=== PATIENT | female | born 1970 ===

== ENCOUNTER 2016-09-14 11:24 | Emergency (ER) | payer MEDICARE ==
[2016-09-14 11:41] VITALS: BP 143/77; PULSE 86; RESP 16; TEMP 97.9; O2SAT 96
[2016-09-14 11:42] VITALS: BMI 32.8
--- NOTE | 2016-09-14 12:28 | ED PDOC ---
HPI: Abdomen Time Seen by Provider: 09/14/16 12:08 Chief Complaint (Nursing): Abdominal Pain Chief Complaint (Provider): Abdominal pain History Per: Patient Additional Complaint(s): c/o suprapubic pain x 3 days, now pain radiating to back, started having light vaginal bleeding yesterday. Has hx of utrine fibroids. Past Medical History Reviewed: Nursing Documentation, Vital Signs Vital Signs: Last Vital Signs Temp 97.9 F 09/14/16 11:40 Pulse 86 09/14/16 11:40 Resp 16 09/14/16 11:40 BP 143/77 09/14/16 11:40 Pulse Ox 96 09/14/16 12:28 - Medical History PMH: HTN - Surgical History Surgical History: Tonsillectomy - Family History Family History: States: Unknown Family Hx - Living Arrangements Living Arrangements: With Family - Social History Current smoker - smoking cessation education provided: No Alcohol: None Drugs: Denies - Immunization History Hx Tetanus Toxoid Vaccination: No Hx Influenza Vaccination: No Hx Pneumococcal Vaccination: No - Home Medications Home Medications: Ambulatory Orders Medication Instructions Recorded Aluminum Hydroxide/Magnesium 30 ml PO QID #1 tresa 01/20/14 [Maalox Plus 360 ml] Famotidine [Pepcid] 20 mg PO BID #20 tab 01/20/14 Lisinopril 01/20/14 Verapamil 01/20/14 Ibuprofen [Motrin] 600 mg PO Q6 #20 tab 09/14/16 - Allergies Allergies/Adverse Reactions: Allergies Allergy/AdvReac Type Severity Reaction Status Date / Time No Known Allergies Allergy Verified 09/14/16 12:09 Review of Systems ROS Statement: Except As Marked, All Systems Reviewed And Found Negative Gastrointestinal: Positive for: Abdominal Pain Physical Exam - Reviewed Nursing Documentation Reviewed: Yes Vital Signs Reviewed: Yes - Physical Exam Appears: Positive for: Well, Non-toxic, No Acute Distress Head Exam: Positive for: ATRAUMATIC, NORMAL INSPECTION, NORMOCEPHALIC Skin: Positive for: Normal Color, Warm, DRY Eye Exam: Positive for: EOMI, Normal appearance, PERRL ENT: Positive for: Normal ENT Inspection Neck: Positive for: Normal, Painless ROM Cardiovascular/Chest: Positive for: Regular Rate, Rhythm Respiratory: Positive for: CNT, Normal Breath Sounds Gastrointestinal/Abdominal: Positive for: Normal Exam, Bowel Sounds, Soft Back: Positive for: Normal Inspection Extremity: Positive for: Normal ROM Neurologic/Psych: Positive for: Alert, Oriented - Laboratory Results Result Diagrams: 09/14/16 12:35 09/14/16 12:35 - ECG O2 Sat by Pulse Oximetry: 96 Medical Decision Making Medical Decision Making: IV access established and treatment initiated with Toradol Good pain relief obtained on re-eval CBC, COMP and Urine within normal limits IMPRESSION: No acute findings. Stable uterine fibroid. Bilateral simple cysts and follicles. Pt educated on results and demonstrated full understanding. Advised OB follow up. Return to ED with any concerns Disposition - Clinical Impression Clinical Impression: Uterine fibroid - Patient ED Disposition Is Patient to be Admitted: No - Disposition [facility] Disposition: Routine/Home Disposition Time: 14:00 Condition: STABLE Prescriptions: Ibuprofen [Motrin] 600 mg PO Q6 #20 tab Instructions: Uterine Fibroids (ED) Forms: [facility] ED School/Work Excuse
[2016-09-14 12:57] LABS: ALB/GLOB RATIO 1.5 (1.0-2.1); ALKALINE PHOSPHATASE 61 U/L (38-126); ALT/SGPT 40 U/L (9-52); AST/SGOT 28 U/L (14-36); BILIRUBIN,TOTAL 0.5 mg/dl (0.2-1.3); BLOOD UREA NITROGEN 12 mg/dl (7-17); CALCIUM 9.5 mg/dL (8.4-10.2); CARBON DIOXIDE 26 mmol/L (22-30); CHLORIDE 104 mmol/L (98-107); GFR AFRICAN-AMERICAN > 60; GLUCOSE,RANDOM 93 mg/dL (65-105); POTASSIUM 3.9 MMOL/L (3.6-5.0); SODIUM 139 mmol/l (132-148); TOTAL PROTEIN 7.1 G/DL (6.3-8.2)
[2016-09-14 13:01] LABS: BASO % 0.5 % (0.0-2.0); EOS # 0.1 K/uL (0.0-0.7); EOS % 1.5 % (0.0-4.0); HEMATOCRIT 42.1 % (34.0-47.0); LYMPH # 1.9 K/uL (1.0-4.3); LYMPH % 42.8 % (20.0-40.0); MEAN CELL VOLUME 92.1 fl (81.0-99.0); MEAN CORPUSCULAR HEMOGLOBIN 30.9 pg (27.0-31.0); MEAN CORPUSCULAR HGB CONC 33.5 g/dL (33.0-37.0); MEAN PLATELET VOLUME 7.6 fl (7.2-11.7); MONO # 0.4 K/uL (0.0-0.8); MONO % 9.4 % (0.0-10.0); NEUT % 45.8 % (50.0-75.0); NRBC % 0.1 % (0.0-0.0); RED CELL DISTRIBUTION WIDTH 12.5 % (11.5-14.5); WHITE BLOOD COUNT 4.5 K/uL (4.8-10.8)
[2016-09-14 13:12] LABS: RBC URINE 3 /hpf (0-3); URINE BILIRUBIN NEGATIVE (NEGATIVE); URINE BLOOD NEGATIVE (NEGATIVE); URINE COLOR YELLOW (YELLOW); URINE GLUCOSE (UA) NEG (Normal); URINE KETONE NEGATIVE (NEGATIVE); URINE LEUKOCYTE ESTERASE NEG Leu/uL (Negative); URINE PROTEIN NEGATIVE (NEGATIVE); URINE UROBILINOGEN 0.2-1.0 mg/dL (0.2-1.0); WBC URINE 1 /hpf (0-5)
--- NOTE | 2016-09-14 16:52 | US ---
HISTORY: Pain 2 days duration. LMP 09/10/2016 COMPARISON: 03/24/2013 TECHNIQUE: Transabdominal, transvaginal. Real -time technique with 2D, duplex and color Doppler. FINDINGS: UTERUS: Measures 6.1 x 7.2 x 12.1 cm. Normal in size and appearance. Location of fibroid(s) and size: Anterior right side of the midline 2.5 x 3 cm ENDOMETRIUM: Measures 10.2 mm in diameter. Unremarkable. CERVIX: No cervical abnormality identified.Incidental finding: Nabothian cysts RIGHT OVARY: Measures 1.8 x 2.7 cm. No solid mass. Normal flow. Simple cyst 1.3 x 2.1 cm LEFT OVARY: Measures 2.2 x 3 cm. No solid mass. Normal flow. Multiple subcentimeter follicles. FREE FLUID: No significant free fluid noted. OTHER FINDINGS: None. IMPRESSION: No acute findings. Stable uterine fibroid. Bilateral simple cysts and follicles.
== END 2016-09-14 17:50 | disposition home or self-care (01) ==
LOC: H.ER 11:24
DX: R10.9 Unspecified abdominal pain (principal); N93.8 Other specified abnormal uterine and vaginal bleeding
CPT/HCPCS: 76830; 76856; 80053; 81003; 81025; 85025; 96374; 99283; J1885

== ENCOUNTER 2017-07-04 16:16 | Emergency (ER) | payer MEDICARE ==
[2017-07-04 16:16] VITALS: BMI 32.8
--- NOTE | 2017-07-04 17:40 | ED PDOC ---
HPI: Female Pain <Sourav Rivas - Last Filed: 07/04/17 20:45> Chief Complaint (Provider): Vaginal bleeding History Per: Patient History/Exam Limitations: no limitations Onset/Duration Of Symptoms: Days (x1 month) Current Symptoms Are (Timing): Still Present Additional Complaint(s): 46 year old female, with past medical history of HTN and fibroids, presents to the emergency department for vaginal bleeding and suprapubic pain, onset one month. She reports the bleeding is intermittent throughout the month, and notes having an irregular menstrual cycle. Today, she states using six pads for the bleeding. The patient denies chest pain and loss of consciousness, but does report dizziness. First Aid Instructor: Wanda Hinson <Louise Zavaleta - Last Filed: 07/05/17 19:41> Time Seen by Provider: 07/04/17 16:44 Chief Complaint (Nursing): Female Genitourinary Past Medical History Vital Signs: Last Vital Signs Temp 98.1 F 07/04/17 16:37 Pulse 89 07/04/17 16:37 Resp 17 07/04/17 16:37 BP 136/89 07/04/17 16:37 Pulse Ox 97 07/04/17 20:33 <Sourav Rivas - Last Filed: 07/04/17 20:45> Reviewed: Historical Data, Nursing Documentation, Vital Signs Vital Signs: Last Vital Signs Temp 98.1 F 07/04/17 16:37 Pulse 89 07/04/17 16:37 Resp 17 07/04/17 16:37 BP 136/89 07/04/17 16:37 Pulse Ox 97 07/04/17 16:37 - Medical History PMH: HTN Other PMH: fibroids - Surgical History Surgical History: Tonsillectomy - Family History Family History: States: Unknown Family Hx - Social History Ex-Smoker (has not smoked in the last 12 months): Yes Alcohol: None Drugs: Denies - Immunization History Hx Tetanus Toxoid Vaccination: No Hx Influenza Vaccination: No Hx Pneumococcal Vaccination: No <Louise Zavaleta - Last Filed: 07/05/17 19:41> - Home Medications Home Medications: Ambulatory Orders Medication Instructions Recorded Aluminum Hydroxide/Magnesium 30 ml PO QID #1 tresa 01/20/14 [Maalox Plus 360 ml] Famotidine [Pepcid] 20 mg PO BID #20 tab 01/20/14 Lisinopril 01/20/14 Verapamil 01/20/14 Ibuprofen [Motrin] 600 mg PO Q6 #20 tab 09/14/16 Mefenamic Acid 250 mg PO Q6 PRN 5 Days #15 capsule 07/04/17 - Allergies Allergies/Adverse Reactions: Allergies Allergy/AdvReac Type Severity Reaction Status Date / Time No Known Allergies Allergy Verified 09/14/16 12:09 Review of Systems ROS Statement: Except As Marked, All Systems Reviewed And Found Negative Cardiovascular: Negative for: Chest Pain Gastrointestinal: Positive for: Abdominal Pain (suprapubic) Genitourinary Female: Positive for: Vaginal Bleeding Neurological: Positive for: Dizziness. Negative for: Other (loss of consciousness) <Louise Zavaleta - Last Filed: 07/05/17 19:41> Physical Exam - Reviewed Nursing Documentation Reviewed: Yes Vital Signs Reviewed: Yes - Physical Exam Appears: Positive for: Non-toxic, No Acute Distress Head Exam: Positive for: ATRAUMATIC, NORMOCEPHALIC Skin: Positive for: Normal Color, Warm, Dry Eye Exam: Positive for: EOMI, Normal appearance, PERRL Neck: Positive for: Normal, Painless ROM, Supple Cardiovascular/Chest: Positive for: Regular Rate, Rhythm. Negative for: Murmur Respiratory: Positive for: Normal Breath Sounds. Negative for: Respiratory Distress Gastrointestinal/Abdominal: Positive for: Soft, Tenderness (suprapubic) Pelvic Exam: Positive for: External Exam Normal, No Masses (interal), Blood ( small amounts on vulva). Negative for: Active Bleeding Back: Positive for: Normal Inspection Extremity: Positive for: Normal ROM Neurologic/Psych: Positive for: Alert, Oriented. 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 <Louise Zavaleta - Last Filed: 07/05/17 19:41> - Laboratory Results Result Diagrams: 07/04/17 17:38 07/04/17 17:38 <Sourav Rivas - Last Filed: 07/04/17 20:45> - Laboratory Results Result Diagrams: 07/04/17 17:38 07/04/17 17:38 - ECG O2 Sat by Pulse Oximetry: 97 (RA) Pulse Ox Interpretation: Normal <FoxLouise shepard Rosemarie - Last Filed: 07/05/17 19:41> Medical Decision Making Medical Decision Makin:31 US Pelvis / Transvag FINDINGS: Uterus/cervix: Anterior uterine body myometrial thickening measuring 4.7 cm. Endometrial stripe is at the upper limits of normal measuring 1.6 cm. Nabothian cysts in the cervix. Right ovary: The right ovary 4.4 by oh 0.9 x 4.1 cm. There is a dominant 2 cm right ovarian cyst. No suspicious adnexal mass. Normal color Doppler flow. Left ovary: The left ovary 3.3 x 2.3 x 3 cm. No suspicious adnexal mass. Normal color Doppler flow. Free fluid: No free fluid. IMPRESSION: 1. Anterior uterine body myometrial thickening measuring 4.7 cm. Leading considerations are fibroid and focal adenomyosis. MRI would help differentiate when clinically appropriate. 2. Endometrial stripe is at the upper limits of normal measuring 1.6 cm. Scribe Attestation: Documented by Kalina Velasquez, acting as a scribe for Sourav Rivas MD Provider Scribe Attestation: All medical record entries made by the Scribe were at my direction and personally dictated by me. I have reviewed the chart and agree that the record accurately reflects my personal performance of the history, physical exam, medical decision making, and the department course for this patient. I have also personally directed, reviewed, and agree with the discharge instructions and disposition. <Sourav Rivas - Last Filed: 07/04/17 20:45> Medical Decision Making: Initial Impression: Vaginal bleeding, suprapubic tenderness Time: 17:22 Initial Plan: --Type and Screen --BMP --ED Urine dipstick --CBC w/ differential --Toradol 30mg IVP --US Pelvis / Transvag Scribe Attestation: Documented by Kalina Velasuqez, acting as a scribe for Louise Zavaleta MD Provider Scribe Attestation: All medical record entries made by the Scribe were at my direction and personally dictated by me. I have reviewed the chart and agree that the record accurately reflects my personal performance of the history, physical exam, medical decision making, and the department course for this patient. I have also personally directed, reviewed, and agree with the discharge instructions and disposition. <Louise Zavaleta - Last Filed: 07/05/17 19:41> Disposition <Sourav Rivas - Last Filed: 07/04/17 20:45> - Patient ED Disposition Is Patient to be Admitted: Transfer of Care - Disposition Disposition: Transfer of Care Disposition Time: 19:00 Patient Signed Over To: Sourav Rivas <Louise Zavaleta - Last Filed: 07/05/17 19:41> - Clinical Impression Clinical Impression: Fibroid - Disposition Referrals: Wanda Hinson MD [Staff Provider] - Condition: STABLE Prescriptions: Mefenamic Acid 250 mg PO Q6 PRN 5 Days #15 capsule PRN Reason: Pain, Moderate (4-7) Instructions: Uterine Fibroids Forms: [facility] (Azerbaijani)
[2017-07-04 17:55] LABS: BASO # 0.1 K/uL (0.0-0.2); BASO % 1.1 % (0.0-2.0); EOS # 0.1 K/uL (0.0-0.7); EOS % 1.5 % (0.0-4.0); HEMOGLOBIN 14.8 g/dL (12.0-16.0); LYMPH % 38.7 % (20.0-40.0); MEAN CELL VOLUME 92.1 fl (81.0-99.0); MEAN CORPUSCULAR HEMOGLOBIN 31.5 pg (27.0-31.0); MEAN CORPUSCULAR HGB CONC 34.2 g/dL (33.0-37.0); MONO # 0.4 K/uL (0.0-0.8); MONO % 7.4 % (0.0-10.0); NEUT # 2.7 K/uL (1.8-7.0); NEUT % 51.3 % (50.0-75.0); NRBC % 0.1 % (0.0-0.0); RBC 4.71 Mil/uL (3.80-5.20); RED CELL DISTRIBUTION WIDTH 12.5 % (11.5-14.5); WHITE BLOOD COUNT 5.3 K/uL (4.8-10.8)
[2017-07-04 18:03] LABS: BLOOD UREA NITROGEN 17 mg/dl (7-17); CALCIUM 9.3 mg/dL (8.4-10.2); GFR AFRICAN-AMERICAN > 60; GFR NON-AFRICAN AMERICAN > 60
--- NOTE | 2017-07-04 19:13 | ED PDOC ---
- Laboratory Results Result Diagrams: 07/04/17 17:38 07/04/17 17:38 - ECG O2 Sat by Pulse Oximetry: 97 (RA) Pulse Ox Interpretation: Normal Medical Decision Making Medical Decision Makin:00 Dr. Zavaleta endorses transfer of care to Dr. Rivas pending US Pelvis / Transvag and final disposition. 845PM EXAM: US Pelvis Complete, Transabdominal US Pelvis, Transvaginal CLINICAL HISTORY: 46 years old, female; Pain; Pelvic pain; Additional info: Suprapubic pain vaginal bleeding TECHNIQUE: Real-time transabdominal and transvaginal pelvic ultrasound (complete) with image documentation. Transvaginal imaging was used for better evaluation of the endometrium and adnexa. COMPARISON: No relevant prior studies available. FINDINGS: Uterus/cervix: Anterior uterine body myometrial thickening measuring 4.7 cm. Endometrial stripe is at the upper limits of normal measuring 1.6 cm. Nabothian cysts in the cervix. Right ovary: The right ovary 4.4 by oh 0.9 x 4.1 cm. There is a dominant 2 cm right ovarian cyst. No suspicious adnexal mass. Normal color Doppler flow. Left ovary: The left ovary 3.3 x 2.3 x 3 cm. No suspicious adnexal mass. Normal color Doppler flow. Free fluid: No free fluid. IMPRESSION: 1. Anterior uterine body myometrial thickening measuring 4.7 cm. Leading considerations are fibroid and focal adenomyosis. MRI would help differentiate when clinically appropriate. 2. Endometrial stripe is at the upper limits of normal measuring 1.6 cm. Thank you for allowing us to participate in the care of your patient. Dictated and Authenticated by: Kai Hagan MD 07/04/2017 8:31 PM Eastern Time ([place] & [place]) Patient feeling well. Results given. Spoke with Dr. Rangel who is covering for Dr. Mazariegos, recommends close followup and Ponstel 500mg x 1 and then 250mg Q6 x 5 days for pain. Patient states she has an appointment with Dr. Hinson on at 1PM. Advised to keep appointment, return precautions given. Disposition - Clinical Impression Clinical Impression: Fibroid - POA Present On Arrival: None - Disposition Referrals: Wanda Hinson MD [Staff Provider] - Disposition: Routine/Home Disposition Time: 20:48 Condition: STABLE Prescriptions: Mefenamic Acid 250 mg PO Q6 PRN 5 Days #15 capsule PRN Reason: Pain, Moderate (4-7) Instructions: Uterine Fibroids Forms: [facility] (E[place]ian)
[2017-07-04 21:45] VITALS: BP 122/78; PULSE 86; RESP 16; TEMP 98.2
--- NOTE | 2017-07-05 07:53 | US ---
HISTORY: Suprapubic pain and vaginal bleeding. Menstrual status: LMP 06/09/2017. Continuous bleeding. COMPARISON: 09/14/2016. Pelvic ultrasound TECHNIQUE: Transabdominal, transvaginal. Real -time technique with 2D, duplex and color Doppler. FINDINGS: UTERUS: Measures 6.6 x 11 x 6.3 cm. Normal in size and appearance. Location of fibroid and size: Anterior 3.9 x 4.3 x 4.7 ENDOMETRIUM: Measures 12.5 mm in diameter. No ultrasound findings to suggest gestational sac, fluid, debris, mass or polyp or other pathologic process within the endometrium. CERVIX: No cervical abnormality identified.Incidental finding: Nabothian cysts the largest measures 1.2 x 1.1 cm RIGHT OVARY: Measures 1.9 x 4.4 x 4.1 cm. No solid mass. Normal flow. Simple cyst 1.5 x 2.2 x 2 cm LEFT OVARY: Measures 1.4 x 2.2 x 2.4 cm. No solid mass. Normal flow. FREE FLUID: No significant free fluid noted. OTHER FINDINGS: None. IMPRESSION: Endometrial hypertrophy without focal abnormality. Stable uterine fibroid. Additional benign and/or incidental findings described above. Concordant results (preliminary interpretation) provided by [facility]. Procedure Completed: 19:39 Preliminary ([facility]) Report: Dictated and Authenticated: 20:31 Final Interpretation: 07:51 July 05, 2017.
[2017-07-05 19:41] VITALS: O2SAT 97
== END 2017-07-04 21:30 | disposition home or self-care (01) ==
LOC: H.ER 16:16
DX: D25.9 Leiomyoma of uterus, unspecified (principal); N83.201 Unspecified ovarian cyst, right side; N80.0 Endometriosis of uterus; I10 Essential (primary) hypertension
CPT/HCPCS: 76830; 76856; 80048; 81025; 85025; 86850; 86900; 96374; 99284; J1885

== ENCOUNTER 2017-09-01 06:04 | Inpatient (IN) | payer MEDICARE, SELFPAY ==
[2017-08-28 09:25] VITALS: BMI 36.0
[2017-09-01] MEDS ORDERED: Lactated Ringer's 1,000 ML IV ONE ×3 (07:00→10:30)
[2017-09-01] MEDS ORDERED: ceFAZolin IV 2 gm in Dextrose 2 GM/50 ML BAG IVPB ONE (07:22)
[2017-09-01] MEDS ORDERED: Propofol 10 mg/ml Inj (20 ML) ONE (07:32)
[2017-09-01] MEDS ORDERED: ePHEDrine 50 mg/ml Inj ONE ×2 (07:33→08:44)
[2017-09-01] MEDS ORDERED: Lidocaine 4% (Laryng-O-Jet) Kit MM ONE (07:34)
[2017-09-01] MEDS ORDERED: Rocuronium 10 mg/ml (5 ml) ONE ×2 (07:34→10:00)
[2017-09-01] MEDS ORDERED: Midazolam 2 MG/2 ML VIAL ONE (07:34)
[2017-09-01] MEDS ORDERED: Succinylcholine 200 mg/10 ml Inj IV ONE (07:36)
[2017-09-01] MEDS ORDERED: Bupivacaine HCl 0.25% PF (30 ml) Inj IJ ONE ×3 (08:40→09:00)
[2017-09-01] MEDS ORDERED: Dexamethasone 4 mg/1 ml ONE (08:44)
[2017-09-01] MEDS ORDERED: Sevoflurane - Inhalation Anesthetic Liq (250 ml) ONE (08:47)
[2017-09-01] MEDS ORDERED: Neostigmine 1:1000 (1 mg/ml) Inj ONE (11:34)
[2017-09-01] MEDS ORDERED: Naloxone 0.4 mg/ml Inj (Adult) IVP PRN (12:37)
[2017-09-01] MEDS: HYDROmorphone 0.5 mg/0.5 ml ISec IVP PRN ×3 (12:54→14:08)
[2017-09-01] MEDS ORDERED: HYDROmorphone 0.5 mg/0.5 ml ISec ONE ×3 (12:56→14:08)
--- NOTE | 2017-09-01 19:24 | HP ---
HISTORY OF PRESENT ILLNESS: This is a 46-year-old -0-1-2, who has been bleeding on and off since 06/09/2017. She also complains of frequent urination for the past few months. The patient was seen at the [facility] ED on 07/04/2017, had an ultrasound that revealed a 4.7 cm anterior uterine fibroid. Endometrial stripe was 12.5 mm, described as endometrial hypertrophy without focal abnormality. She underwent an endometrial biopsy on 07/26/2017 and the results were benign endometrial polyp in a background disordered proliferative endometrium. The patient reports that she has gained weight due to the school. The patient desires definitive treatment of her menometrorrhagia. PAST MEDICAL HISTORY: Bipolar, sees a therapist and a psychiatrist, history of hypertension. MEDICATIONS: Lisinopril 10 mg once a day, verapamil 120 mg twice a day, and the patient also takes Valtrex 500 mg orally every 24 hours. SURGICAL HISTORY: Tonsillectomy in 1992 and a left foot plantar fasciotomy in 01/2014. FAMILY HISTORY: Father is alive with diabetes, heart disease, and hypertension. Her mother is , had a brain aneurysm. Paternal grandfather , had pancreatic cancer and was an alcoholic. Of note, the patient's younger son has Asperger's. SOCIAL HISTORY: The patient walks five days a week. 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 She is a former smoker and she drinks one to two drinks monthly or less and denies illicit drug use. GYNECOLOGIC HISTORY: Her periods used to be monthly until this year in 05/2017, when she started bleeding for many days at a time with only a few days of a break. The patient is sexually active. Her partner has had a vasectomy. The patient has a history of genital herpes type 2. OBSTETRICS HISTORY: She has had a termination and she has undergone two full-term vaginal deliveries. ALLERGIES: NO KNOWN DRUG ALLERGIES. PHYSICAL EXAMINATION: GENERAL: Afebrile. VITAL SIGNS: Stable. ABDOMEN: Soft, nontender, obese. EXTREMITIES: Nontender. No edema. DIAGNOSTIC DATA: Ultrasound imaging as above. ASSESSMENT AND PLAN: This is a 46-year-old G3, P2-0-1-2 with menometrorrhagia, who desires definitive treatment. She is scheduled for a robotic-assisted hysterectomy, bilateral salpingectomy, cystoscopy with stents. The patient was consented for the surgery. Risks, benefits, and alternatives have been reviewed with the patient in detail. All questions were answered. The patient has also been consented for possible transfusion. Brandon Hinson MD MTDD
[2017-09-01] MEDS: Lactated Ringer's 1,000 ML IV SCH (20:45)
--- NOTE | 2017-09-02 01:33 | OP ---
PROCEDURE DATE: 09/01/2017 PREOPERATIVE DIAGNOSES: Fibroid uterus, pelvic pain and menorrhagia. POSTOPERATIVE DIAGNOSIS: Fibroid uterus, pelvic pain and menorrhagia. PROCEDURE: Cystoscopy with ureteral stenting. SURGEON: Hyun Hawthorne MD. COMPLICATIONS: There were no complications. DESCRIPTION OF PROCEDURE: The patient was taken to the operating room where she was given general anesthesia. The patient was placed in the dorsal lithotomy position in [facility]. The patient was prepped and draped in normal sterile fashion. The urethra was then identified. The cystoscope was inserted, and the bladder was filled, and the bladder was surveyed. The dome of the bladder was noted to be intact. Both ureteral orifices were identified. The right ureteral orifice was then placed in view, and a stent was placed. ICG-Green 5 mL was injected. Attention was then turned to the left side, which in similar fashion, the ureteral orifice was identified, stented, and 5 mL of ICG-Green was injected. The cystoscope was then removed from the bladder, and a Clay catheter was inserted to monitor the patient's urinary output. Dr. Hinson performed hysterectomy, and at the conclusion of the case, the cystoscope was inserted. The dome of the bladder was noted. There was bilateral clear efflux of urine. The dome of the bladder was intact. The cystoscope was then removed and that concludes my portion of the case. The rest dictation will be dictated by Dr. Wanda Hinson. Hyun Hawthorne MD
--- NOTE | 2017-09-02 01:52 | OP ---
PROCEDURE DATE: 09/01/2017 PREOPERATIVE DIAGNOSIS: This is a 46-year-old, 3, para 2-0-1-2 with menometrorrhagia with a known fibroid uterus who desires definitive treatment. POSTOPERATIVE DIAGNOSIS: This is a 46-year-old, 3, para 2-0-1-2 with menometrorrhagia with a known fibroid uterus who desires definitive treatment. SURGERY PERFORMED: Robotic-assisted hysterectomy, bilateral salpingectomy, right ovarian cystotomy, and cystoscopy with stents (cystoscopy with stents performed by Dr. Hyun Hawthorne). COMPLICATIONS: None. ESTIMATED BLOOD LOSS: About 200 mL. SURGEON: Brandon Hinson MD EDUCATIONAL INTERPRETER: Dr. Hyun Hawthorne. Dr. Hyun Hawthorne was the blood bank assistant and akbar of this case. He was instrumental in the care of the patient. He was present for the entire duration of the case. He assisted with placing the ports in the abdomen and with docking the robot. He performed the right ovarian cystotomy and the the colpotomy during the hysterectomy. He was instrumental in removing the tubes from the abdomen. He also performed the cystoscopy with stents. This procedure would not have been possible without his guidance and assistance. ANESTHESIA: General endotracheal tube anesthesia. ANESTHESIA ADMINISTERED BY: Lisa Lau MD FINDINGS: Anteverted bulky uterus sounded to about 11 cm. The uterus did have an anterior mass that seemed to be a soft tissue mass and not a well-defined fibroid. The right ovary had a simple cyst that was drained of clear yellow fluid. The left ovary and both tubes appeared normal. COMPLICATIONS: None. DESCRIPTION OF PROCEDURE: After informed consent was obtained, the patient was taken to the operating room where she was placed under general anesthesia. She was then placed in the dorsal lithotomy position and prepped and draped in the usual sterile fashion. The cystoscopy and stent placement was performed at this time, to be dictated by Dr. Hyun Hawthorne. Following the cystoscopy, a bivalved speculum was placed in the vagina. The cervix was visualized, grasped with a single-tooth tenaculum and then gently dilated. The Pogoappare uterine manipulator was inserted into the uterine cavity as a mean to manipulate the uterus. The tenaculum was removed from the cervix. Attention was then turned to the urethra where a Clay catheter was inserted to monitor the patient's urinary output. Attention was then turned to about 10 cm above the umbilicus where an 8-mm incision was made after infusion of Marcaine. The Veress needle was inserted into the abdominal cavity. The gas was applied. The opening pressure was low. The abdomen was insufflated to 18 mmHg, and then that was turned down to 15 mmHg. An 8-mm robotic trocar was introduced into the abdominal cavity. Placement was confirmed with the laparoscope. About 20 cm right and lateral to the initial incision, skin was infused with Marcaine, and an 8-mm port was introduced into the abdominal cavity under direct visualization. Attention was then turned to the area that was about 10 cm right and lateral to the initial incision, and again Marcaine was infused followed by an 8-mm port placed under direct visualization. About 20 cm lateral and to the left of the initial incision, an 8-mm port was introduced into the abdominal cavity under direct visualization. Finally, a 5-mm accessory port was placed about 10 cm to the left of the initial incision. All the ports were placed in a similar fashion, after the infusion of Marcaine and under direct visualization. The patient was then placed in Trendelenburg. The abdomen was surveyed. The instruments used for the surgery were the PK dissector, scissors, and the ProGrasp. The instruments were inserted under direct visualization and the robot was docked without complication. I then proceeded to break scrub and moved over to the surgical console. The left utero-ovarian ligament was coagulated with the PK dissector and transected with the scissors. The left tube was then coagulated and transected in a similar manner. The left round ligament was coagulated with the PK dissector and transected with the scissors. The vesicouterine peritoneum was then undermined with the PK dissector as the scissors created the bladder flap past the midline at the level of the VCare manipulator. Attention was then turned to the posterior peritoneum as it was undermined with the PK dissector. The scissors were used to come across and dissect the left side of the posterior peritoneum. The left uterine artery was then coagulated. Attention was then turned to the right side of the uterus where the utero-ovarian ligament and the tube were coagulated and transected. The right round ligament was then coagulated with the PK dissector and transected with the scissors. The vesicouterine peritoneum was undermined from the right side, and the vesicouterine peritoneum was incised at the level of the VCare uterine manipulator. The posterior peritoneum on the right side was dissected away. The right uterine artery was then coagulated and cut. There was noted to be some bleeding on the right side of the uterus and so, the medical or surgical instrument maker suctioned and the right uterine artery was re-coagulated for hemostasis. Attention was then turned to the left uterine artery, which was then transected. Dr. Hawthorne then broke scrub and moved to the console. He dissected down the vesicouterine peritoneum. He performed a cystotomy in the right ovarian cyst that drained clear yellow fluid. He then made an incision in the anterior mass of the uterus, which turned out not to be a well-defined fibroid, but more like a soft tissue mass. He proceeded to cut open the uterus, so it would be more easily removed through the vagina. The VCare cuff was then identified circumferentially, and the colpotomy was made using the scissors. The cervix and the uterus were then amputated from the vagina, and the uterus and cervix were extracted vaginally. I sat at the console and coagulated and cut the mesoasalpinx of both tubes and the remaining portion of the tubes were placed in the anterior cul-de-sac, and they were removed through the vagina using ring forceps. Dr. Hawthorne removed the tubes through the vagina with the Ring forceps. Dr. Hawthorne then sat at the console and closed the vaginal cuff with 2-0 barbed suture. The abdomen was then well irrigated. The irrigation was removed with a suction device. All instruments were then removed from the abdomen. The incisions were repaired with a 4-0 Monocryl. Marcaine was injected into the incisions. Dermabond was applied to the incisions. Dr. Hawthorne performed a cystoscopy at the completion of the procedure. An efflux of urine was seen through both ureteral orifices. The cystoscope was removed. All sponge, lap and needle and instrument counts were correct. The patient was taken to the recovery room, awake, extubated in stable condition. Brandon Hinson MD [facility] # [id number] MTDD
[2017-09-02] MEDS: Lactated Ringer's 1,000 ML IV SCH (04:10)
[2017-09-02 08:14] VITALS: BP 96/59; PULSE 80; RESP 18; TEMP 97.7; O2SAT 98
[2017-09-02] MEDS ORDERED: Oxycodone/Acetaminophen 5/325 mg Tab PO PRN (10:04)
--- NOTE | 2017-09-02 10:34 | CP.PCM.PN ---
Subjective - Date & Time of Evaluation Date of Evaluation: 09/02/17 Time of Evaluation: 10:27 - Subjective Subjective: Pt reports that she feels better, denies nausea, reports pain is well-controlled , tolerating clear fluids. Objective - Vital Signs/Intake and Output Vital Signs (last 24 hours): Temp Pulse Resp BP Pulse Ox 97.7 F 80 18 96/59 L 98 09/02/17 08:12 09/02/17 08:12 09/02/17 08:12 09/02/17 08:12 09/02/17 08:12 Intake and Output: 09/02/17 09/02/17 06:59 18:59 Intake Total 475 1630 Output Total 200 1400 Balance 275 230 - Medications Medications: Current Medications Ibuprofen (Motrin Tab) 600 mg PO Q6 IRAM Naloxone HCl (Narcan) 0.1 mg IVP Q2M PRN PRN Reason: Opiate reversal Ondansetron HCl (Zofran Inj) 4 mg IVP Q6 PRN PRN Reason: Nausea/Vomiting Oxycodone/Acetaminophen (Percocet 5/325 Mg Tab) 1 tab PO Q4 PRN PRN Reason: pain 3-7 Stop: 09/05/17 10:05 - Constitutional Appears: Well - GI/Abdominal Exam Additional comments: low bowel sounds, soft, NT , incisions w/ band-aids in place - Extremities Exam Extremities Exam: Normal Inspection Assessment and Plan - Assessment and Plan (Free Text) Assessment: POD 1 s/p Robotic-assisted hysterectomy, bilateral salpingectomy, right ovarian cystotomy, cystoscopy w/ stents, doing well Discontinue IV fluid, and remove Clay from bladder 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
[2017-09-02 11:13] LABS: BASO # 0.1 K/uL (0.0-0.2); BASO % 0.5 % (0.0-2.0); EOS % 0.1 % (0.0-4.0); HEMOGLOBIN 13.9 g/dL (12.0-16.0); LYMPH # 1.3 K/uL (1.0-4.3); LYMPH % 10.6 % (20.0-40.0); MEAN CORPUSCULAR HEMOGLOBIN 32.1 pg (27.0-31.0); MEAN CORPUSCULAR HGB CONC 34.5 g/dL (33.0-37.0); MEAN PLATELET VOLUME 7.2 fl (7.2-11.7); MONO # 0.9 K/uL (0.0-0.8); MONO % 7.3 % (0.0-10.0); NEUT # 9.7 K/uL (1.8-7.0); NEUT % 81.5 % (50.0-75.0); RBC 4.34 Mil/uL (3.80-5.20); RED CELL DISTRIBUTION WIDTH 13.2 % (11.5-14.5); WHITE BLOOD COUNT 11.9 K/uL (4.8-10.8)
== END 2017-09-02 14:18 | disposition home or self-care (01) | DRG 743 ==
LOC: H.OPSURG 06:04 → H.MEDSURG1 15:52
PROVIDERS: ADMIT Obstetrics & Gynecology; ATTEND Obstetrics & Gynecology
PROC: 0UT9FZZ Resection of Uterus, Via Natural or Artificial Opening With Percutaneous Endoscopic Assistance (ICD-10-PCS; principal; 2017-09-01 07:45)
PROC: 0UT7FZZ Resection of Bilateral Fallopian Tubes, Via Natural or Artificial Opening With Percutaneous Endoscopic Assistance (ICD-10-PCS; 2017-09-01 07:45)
PROC: 8E0W4CZ Robotic Assisted Procedure of Trunk Region, Percutaneous Endoscopic Approach (ICD-10-PCS; 2017-09-01 07:45)
DX: N92.1 Excessive and frequent menstruation with irregular cycle (principal); N84.0 Polyp of corpus uteri; N83.291 Other ovarian cyst, right side; N85.9 Noninflammatory disorder of uterus, unspecified; F31.9 Bipolar disorder, unspecified; I10 Essential (primary) hypertension; Z87.891 Personal history of nicotine dependence; E66.9 Obesity, unspecified; Z68.36 Body mass index [BMI] 36.0-36.9, adult

== ENCOUNTER 2017-09-10 11:46 | Emergency (ER) | payer MEDICARE, OTHER ==
[2017-09-10 11:59] VITALS: BMI 34.4
[2017-09-10] MEDS ORDERED: Sodium Chloride 0.9% 500 ML IV STA (12:18)
--- NOTE | 2017-09-10 12:21 | ED PDOC ---
HPI: Female Pain Time Seen by Provider: 09/10/17 12:04 Chief Complaint (Nursing): Female Genitourinary Chief Complaint (Provider): Vaginal bleeding History Per: Patient History/Exam Limitations: no limitations Additional Complaint(s): Pt 9 days s/p lap hysterectomy presents with vaginal bleeding X 3 days, using 6 pantyliners per day, associated with lower abdominal pain. Has been taking Motrin and Oxycodone with good relief of pain. Denies fever, nausea, vomiting, SOB, dizziness, vaginal discharge. Pt called Dr. Varma (access liaison for Dr. Hinson ) who advised pt to come to ED. Abnormal Vaginal Bleeding: Yes Past Medical History Reviewed: Nursing Documentation, Vital Signs Vital Signs: Last Vital Signs Temp 98 F 09/10/17 11:57 Pulse 89 09/10/17 11:57 Resp BP 123/79 09/10/17 11:57 Pulse Ox 96 09/10/17 11:57 - Medical History PMH: HTN - Surgical History Surgical History: Tonsillectomy Other surgeries: Hysterectomy - Family History Family History: States: Unknown Family Hx - Living Arrangements Living Arrangements: With Family - Social History Current smoker - smoking cessation education provided: No Alcohol: None - Immunization History Hx Tetanus Toxoid Vaccination: No Hx Influenza Vaccination: No Hx Pneumococcal Vaccination: No - Home Medications Home Medications: Ambulatory Orders Medication Instructions Recorded Lisinopril 10 mg PO DAILY 01/20/14 Verapamil 120 mg PO BID 01/20/14 Ibuprofen [Motrin Tab] 600 mg PO Q6 #30 tab 09/02/17 oxyCODONE/Acetaminophen [Percocet 1 tab PO Q4 PRN #20 tab 09/02/17 5/325 mg Tab] Sulfamethoxazole/Trimethoprim 1 tab PO BID #13 tab 09/10/17 [Bactrim DS 800 mg-160 mg] - Allergies Allergies/Adverse Reactions: Allergies Allergy/AdvReac Type Severity Reaction Status Date / Time No Known Allergies Allergy Verified 09/10/17 12:04 Review of Systems Constitutional: Negative for: Fever, Chills Cardiovascular: Negative for: Chest Pain, Palpitations Respiratory: Negative for: Cough, Shortness of Breath Gastrointestinal: Positive for: Abdominal Pain. Negative for: Nausea, Vomiting , Diarrhea Genitourinary Female: Positive for: Vaginal Bleeding, Pelvic Pain. Negative for : Dysuria, Hematuria, Vaginal Discharge Musculoskeletal: Negative for: Neck Pain, Back Pain Skin: Negative for: Rash, Lesions Neurological: Negative for: Weakness, Numbness, Headache, Dizziness Physical Exam - Reviewed Nursing Documentation Reviewed: Yes Vital Signs Reviewed: Yes - Physical Exam Appears: Positive for: Well, No Acute Distress Head Exam: Positive for: ATRAUMATIC, NORMAL INSPECTION Skin: Positive for: Normal Color, Warm, Dry Eye Exam: Positive for: Normal appearance, EOMI, PERRL Cardiovascular/Chest: Positive for: Regular Rate, Rhythm Respiratory: Positive for: Normal Breath Sounds. Negative for: Rales, Rhonchi, Wheezing Gastrointestinal/Abdominal: Positive for: Bowel Sounds, Soft, Tenderness ( Suprapubic), Other (Incisions C/D/I). Negative for: Guarding, Rebound Back: Positive for: Normal Inspection. Negative for: L CVA Tenderness, R CVA Tenderness Neurologic/Psych: Positive for: Alert, Oriented - Laboratory Results Result Diagrams: 09/10/17 13:10 09/10/17 13:10 - ECG O2 Sat by Pulse Oximetry: 96 Medical Decision Making Medical Decision Makin yo female with vaginal bleeding 9 days s/p hysterectomy. - labs - CT abd/pelvis - IVF - Morphine Time: 16:11 --Spoke to Dr. Hinson, request Dr. Kohli to come evaluate. 17:[address] Kohli in ED. Recommends d/c home with Bactrim bid X 7 days, follow-up with Dr. Hinson. Scribe Attestation: Documented by Eduardo Jackson, acting as a scribe for Tyra Chacon MD. Provider Scribe Attestation: All medical record entries made by the Scribe were at my direction and personally dictated by me. I have reviewed the chart and agree that the record accurately reflects my personal performance of the history, physical exam, medical decision making, and the department course for this patient. I have also personally directed, reviewed, and agree with the discharge instructions and disposition. Disposition - Clinical Impression Clinical Impression: Post-op bleeding - Disposition Referrals: Wanda Hinson MD [Staff Provider] - Disposition: Routine/Home Disposition Time: 18:00 Condition: IMPROVED Prescriptions: Sulfamethoxazole/Trimethoprim [Bactrim DS 800 mg-160 mg] 1 tab PO BID #13 tab Instructions: Postoperative Pain (DC) Forms: [employer] ([place]er)
[2017-09-10 13:45] LABS: EOS # 0.1 K/uL (0.0-0.7); EOS % 1.5 % (0.0-4.0); HEMOGLOBIN 13.9 g/dL (12.0-16.0); LYMPH # 1.9 K/uL (1.0-4.3); LYMPH % 38.1 % (20.0-40.0); MEAN CELL VOLUME 91.9 fl (81.0-99.0); MEAN CORPUSCULAR HEMOGLOBIN 31.9 pg (27.0-31.0); MEAN CORPUSCULAR HGB CONC 34.7 g/dL (33.0-37.0); MEAN PLATELET VOLUME 7.7 fl (7.2-11.7); MONO # 0.5 K/uL (0.0-0.8); MONO % 10.3 % (0.0-10.0); NEUT # 2.4 K/uL (1.8-7.0); NEUT % 49.1 % (50.0-75.0); NRBC % 0.1 % (0.0-0.0); RBC 4.35 Mil/uL (3.80-5.20); RED CELL DISTRIBUTION WIDTH 12.6 % (11.5-14.5); WHITE BLOOD COUNT 4.9 K/uL (4.8-10.8)
[2017-09-10 13:55] LABS: ALB/GLOB RATIO 1.2 (1.0-2.1); ALBUMIN 4.2 g/dL (3.5-5.0); CALCIUM 9.1 mg/dL (8.4-10.2); GFR AFRICAN-AMERICAN > 60; GFR NON-AFRICAN AMERICAN > 60
[2017-09-10 14:00] LABS: INR 1.1 (0.9-1.2); PROTHROMBIN TIME 12.3 Seconds (9.8-13.1)
[2017-09-10] MEDS ORDERED: Sodium Chloride 0.9% 50 ML IV ONE (14:09)
[2017-09-10] MEDS ORDERED: Iohexol 300 50 ML ONE (14:09)
[2017-09-10 14:33] LABS: ALT/SGPT 28 U/L (9-52); AST/SGOT 30 U/L (14-36); BLOOD UREA NITROGEN 12 mg/dl (7-17)
[2017-09-10 14:37] LABS: SQUAMOUS EPITHIAL 2 /hpf (0-5); URINE BILIRUBIN NEGATIVE (NEGATIVE); URINE BLOOD SMALL (NEGATIVE); URINE CLARITY SLIGHTY-CLOUDY (Clear); URINE COLOR YELLOW (YELLOW); URINE GLUCOSE (UA) NEG (Normal); URINE LEUKOCYTE ESTERASE SMALL Leu/uL (Negative); URINE PROTEIN NEGATIVE (NEGATIVE); URINE UROBILINOGEN 0.2-1.0 mg/dL (0.2-1.0)
--- NOTE | 2017-09-10 15:57 | CT ---
Date of service: 09/10/2017 PROCEDURE: CT Abdomen and Pelvis with Oral contrast. HISTORY: Lower abd pain, vag bleeding, 9 d s/p hysterectomy COMPARISON: None. TECHNIQUE: Contiguous axial images of the abdomen and pelvis performed in standard fashion following intravenous injection of 95 cc Omnipaque 300 contrast material. Additional 2D sagittal and coronal reformats generated. This CT exam was performed using one or more of the following dose reduction techniques: Automated exposure control, adjustment of the mA and/or kV according to patient size, and/or use of iterative reconstruction technique. Contrast dose: . Radiation dose: Total exam DLP = 1043.35 mGy-cm.. FINDINGS: LOWER THORAX: Mild passive/ dependent type atelectasis both posterior sulci. LIVER: Liver is enlarged measuring nearly 20 cm in CC dimension. Mild fatty hepatic infiltration. No obvious hepatic mass collection or calcification. Portal and splenic veins are opacified. Mild fatty hepatic infiltration. GALLBLADDER AND BILE DUCTS: Gallbladder physiologically distended. No evidence of intraluminal gallbladder calculi. PANCREAS: Unremarkable. No mass. No ductal dilatation. SPLEEN: Unremarkable. No splenomegaly. ADRENALS: Unremarkable. KIDNEYS AND URETERS: Kidneys demonstrate relatively symmetric nephrograms. Apparent small rounded low-attenuation focus upper pole right kidney that exhibits Hounsfield units in the upper 30s which could be secondary to a small cyst with volume averaging of surrounding not contrast enhanced renal parenchyma. Possibility of a solid lesion not excluded. Followup interval could be performed. Alternately, ultrasound could be obtained. BLADDER: Grossly unremarkable. REPRODUCTIVE: Hysterectomy. There are postoperative changes which appear represent some combination of granulation tissue some fluid and apparent of bubbles of air though the areas likely within the vaginal wall. . Few bubbles of air are also seen which appear to be located within the vaginal vault. . Fistulous communication cannot be excluded. Clinical correlation and pulp press tender consultation recommended APPENDIX: Unremarkable. BOWEL: Unremarkable. No obstruction. No gross mural thickening. PERITONEUM: As above. . Small fat containing umbilical hernia. LYMPH NODES: Unremarkable. No enlarged lymph nodes. VASCULATURE: Unremarkable. No aortic aneurysm. BONES: Minor multilevel degenerative spondylosis of the lower thoracic and lumbar spine. OTHER FINDINGS: None. IMPRESSION: Hysterectomy. There are postoperative changes which appear represent some the combination of granulation tissue some fluid and apparent of bubbles of air though the areas likely within the vaginal wall. . Few bubbles of air are also seen which appear to be located within the vaginal vault. . Fistulous communication cannot be excluded. Clinical correlation and pulp press tender consultation recommended
[2017-09-10] MEDS ORDERED: Tmp-Smz 800 mg-160 mg DS Tab PO STA (17:54)
[2017-09-10 18:18] VITALS: BP 125/79; PULSE 77; RESP 16; TEMP 98.2; O2SAT 100
--- NOTE | 2017-09-10 18:23 | CP.PCM.CON ---
History of Present Illness - History of Present Illness History of Present Illness: Called to see a 46yo female s/p Robotic assisted Hysterectomy on 09/01/2017. She reports that she has been okay until on 09/08/17, when she saw some bleeding on her panty liners. Bleeding has been dark and scanty but stains the sanitary pads making her change several times. Denies any fever or pelvic pain. She denies any trauma or sexual activity since the procedure. O: Appears well and not in apparent distress Chest: CTA B/L Abd: Soft, NT, BS -present Robotic ports clean and dry without and abnormal discharge. Vulva appeared - normal Speculum Exam: Vaginal mucosa appears well estrogenized,no lesions seen. A pool of about 1ml of old blood was cleaned with sterile gauze after wound cultures has been obtained. There was no active bleeding observed. No collection of blood after waiting for 5 minutes. Assessment: S/P Robotic Assisted Hysterectomy Postoperative Vaginal vault bleeding, Rule out possible cuff cellulitis Plan: - Start antibiotics- Bactrim recomended. - Wound culture for microbiology -Follow up with Dr Hinson on Monday for further evaluation - Pelvic rest advised. - Discussed findings with Dr Hinson on Phone. Jamie Kohli M.D. Past Patient History - Past Medical History & Family History Past Medical History?: Yes - Past Social History Alcohol: None - CARDIAC Hx Hypertension: Yes - PULMONARY Hx Respiratory Disorders: No - NEUROLOGICAL Hx Neurological Disorder: No - HEENT Hx HEENT Problems: No - RENAL Other/Comment: frequent urination - ENDOCRINE/METABOLIC Hx Endocrine Disorders: No - HEMATOLOGICAL/ONCOLOGICAL Hx Blood Disorders: No - INTEGUMENTARY Hx Dermatological Problems: No - MUSCULOSKELETAL/RHEUMATOLOGICAL Hx Musculoskeletal Disorders: No - GASTROINTESTINAL Hx Gastrointestinal Disorders: No - GENITOURINARY/GYNECOLOGICAL Hx Genitourinary Disorders: Yes Other/Comment: fibroids - PSYCHIATRIC Hx Psychophysiologic Disorder: No Hx Substance Use: No - SURGICAL HISTORY Hx Tonsillectomy: Yes - ANESTHESIA Hx Anesthesia: Yes Hx Anesthesia Reactions: No Meds Home Medications: Home Medication List Medication Instructions Recorded Confirmed Type Sulfamethoxazole/Trimethoprim 1 tab PO BID #13 tab 09/10/17 Rx [Bactrim DS 800 mg-160 mg] Allergies/Adverse Reactions: Allergies Allergy/AdvReac Type Severity Reaction Status Date / Time No Known Allergies Allergy Verified 09/10/17 12:04 Results - Vital Signs Recent Vital Signs: Last Vital Signs Temp 98 F 09/10/17 11:57 Pulse 89 09/10/17 11:57 Resp BP 123/79 09/10/17 11:57 Pulse Ox 96 09/10/17 18:02 - Labs Result Diagrams: 09/10/17 13:10 09/10/17 13:10 Labs: Laboratory Results - last 24 hr 09/10/17 09/10/17 09/10/17 12:41 13:10 13:10 WBC 4.9 D RBC 4.35 Hgb 13.9 Hct 40.0 MCV 91.9 MCH 31.9 H MCHC 34.7 RDW 12.6 Plt Count 255 MPV 7.7 Neut % (Auto) 49.1 L Lymph % (Auto) 38.1 [place] % (Auto) 10.3 H Eos % (Auto) 1.5 Baso % (Auto) 1.0 Neut # (Auto) 2.4 Lymph # (Auto) 1.9 [place] # (Auto) 0.5 Eos # (Auto) 0.1 Baso # (Auto) 0.0 PT INR APTT Sodium Potassium Chloride Carbon Dioxide Anion Gap BUN Creatinine Est GFR ( Amer) Est GFR (Non-Af Amer) Random Glucose Calcium Total Bilirubin AST ALT Alkaline Phosphatase Total Protein Albumin Globulin Albumin/Globulin Ratio Urine Color Yellow Urine Clarity Slighty-cloudy Urine pH 5.0 Ur Specific [place] 1.024 Urine Protein Negative Urine Glucose (UA) Neg Urine Ketones Negative Urine Blood Small Urine Nitrate Negative Urine Bilirubin Negative Urine Urobilinogen 0.2-1.0 Ur Leukocyte Esterase Small Urine RBC (Auto) 3 Urine Microscopic WBC 4 Ur Squamous Epith Cells 2 Blood Type O POSITIVE Antibody Screen Negative BBK History Checked Patient has bt 09/10/17 09/10/17 13:10 13:10 WBC RBC Hgb Hct MCV MCH MCHC RDW Plt Count MPV Neut % (Auto) Lymph % (Auto) [place] % (Auto) Eos % (Auto) Baso % (Auto) Neut # (Auto) Lymph # (Auto) [place] # (Auto) Eos # (Auto) Baso # (Auto) PT 12.3 INR 1.1 APTT 33.0 Sodium 137 Potassium 4.6 Chloride 102 Carbon Dioxide 25 Anion Gap 15 BUN 12 Creatinine 0.6 L Est GFR ( Amer) > 60 Est GFR (Non-Af Amer) > 60 Random Glucose 87 Calcium 9.1 Total Bilirubin 0.6 AST 30 ALT 28 Alkaline Phosphatase 74 Total Protein 7.6 Albumin 4.2 Globulin 3.4 Albumin/Globulin Ratio 1.2 Urine Color Urine Clarity Urine pH Ur Specific [place] Urine Protein Urine Glucose (UA) Urine Ketones Urine Blood Urine Nitrate Urine Bilirubin Urine Urobilinogen Ur Leukocyte Esterase Urine RBC (Auto) Urine Microscopic WBC Ur Squamous Epith Cells Blood Type Antibody Screen BBK History Checked
[2017-09-10] MEDS ORDERED: Tmp-Smz 800 mg-160 mg DS Tab ONE (18:53)
== END 2017-09-10 18:18 | disposition home or self-care (01) ==
LOC: H.ER 11:46
DX: N99.820 Postprocedural hemorrhage of a genitourinary system organ or structure following a genitourinary system procedure (principal)
CPT/HCPCS: 74177; 80053; 81003; 81025; 85025; 85610; 85730; 86850; 86900; 87070; 96374; 99284; J2270; J7030; Q9967

== ENCOUNTER 2018-01-17 22:15 | Emergency (ER) | payer MEDICARE, SELFPAY ==
[2018-01-17 22:15] VITALS: BMI 34.4
[2018-01-17] MEDS ORDERED: Albuterol-Ipratrop 3 mg / 0.5 (3 ml) UD IH STA ×3 (22:58→22:59)
[2018-01-17] MEDS ORDERED: Sodium Chloride 0.9% 1,000 ML IV STA (22:58)
--- NOTE | 2018-01-17 23:02 | ED PDOC ---
HPI: CCC, URI, Sore Throat Time Seen by Provider: 01/17/18 22:45 Chief Complaint (Nursing): Flu-like Symptoms Chief Complaint (Provider): cough History Per: Patient History/Exam Limitations: no limitations Onset/Duration Of Symptoms: Days (2) Current Symptoms Are (Timing): Still Present Location Of Pain: Throat Associated Symptoms: Fever, Chills, Sore Throat, Cough, Nasal Congestion Additional Complaint(s): 47 y/o female presents for evaluation of dry cough x 2 days. Associated tactile fevers, nasal congestion. Patient states she now has pain in her chest and throat when she coughs. Denies headache, dizziness, shortness of breath, palpitations, vomiting, abdominal pain, changes in bowel movements, urinary sy mptoms, recent travel, sick contacts. Past Medical History Reviewed: Historical Data, Nursing Documentation, Vital Signs Vital Signs: Last Vital Signs Temp 100.7 F H 01/17/18 22:32 Pulse 116 H 01/17/18 22:32 Resp 22 01/17/18 22:32 BP 133/80 01/17/18 22:32 Pulse Ox 98 01/17/18 22:32 - Medical History PMH: HTN - Surgical History Surgical History: Tonsillectomy - Family History Family History: States: Unknown Family Hx - Immunization History Hx Tetanus Toxoid Vaccination: No Hx Influenza Vaccination: No Hx Pneumococcal Vaccination: No - Home Medications Home Medications: Ambulatory Orders Medication Instructions Recorded Lisinopril 10 mg PO DAILY 01/20/14 Verapamil 120 mg PO BID 01/20/14 Ibuprofen [Motrin Tab] 600 mg PO Q6 #30 tab 09/02/17 oxyCODONE/Acetaminophen [Percocet 1 tab PO Q4 PRN #20 tab 09/02/17 5/325 mg Tab] Sulfamethoxazole/Trimethoprim 1 tab PO BID #13 tab 09/10/17 [Bactrim DS 800 mg-160 mg] Albuterol HFA [Ventolin HFA 90 1 puff IH Q4 PRN #1 inh 01/18/18 mcg/actuation (8 g)] Ibuprofen [Motrin Tab] 1 tab PO Q6 PRN #20 tab 01/18/18 Oseltamivir [Tamiflu] 75 mg PO BID #9 cap 01/18/18 Promethazine HCl/Codeine 5 ml PO Q8 PRN #75 ml 01/18/18 [Promethazine-Codeine Syrup] - Allergies Allergies/Adverse Reactions: Allergies Allergy/AdvReac Type Severity Reaction Status Date / Time No Known Allergies Allergy Verified 09/10/17 12:04 Review of Systems ROS Statement: Except As Marked, All Systems Reviewed And Found Negative Constitutional: Positive for: Fever, Chills ENT: Positive for: Nose Congestion Respiratory: Positive for: Cough Physical Exam - Reviewed Nursing Documentation Reviewed: Yes Vital Signs Reviewed: Yes - Physical Exam Appears: Positive for: Well, Non-toxic, No Acute Distress Head Exam: Positive for: ATRAUMATIC, NORMAL INSPECTION, NORMOCEPHALIC Skin: Positive for: Normal Color Eye Exam: Positive for: Normal appearance ENT: Positive for: Nasal Congestion Neck: Positive for: Normal, Painless ROM Cardiovascular/Chest: Positive for: Regular Rate, Rhythm Respiratory: Positive for: Normal Breath Sounds Gastrointestinal/Abdominal: Positive for: Normal Exam Back: Positive for: Normal Inspection Extremity: Positive for: Normal ROM Neurologic/Psych: Positive for: Alert, Oriented (x3) - Laboratory Results Result Diagrams: 01/18/18 00:44 01/18/18 00:44 - ECG O2 Sat by Pulse Oximetry: 98 - Progress ED Course And Treament: -cbc -cmp -troponin -influenza -rapid strep -cxr -IV NS bolus -IV toradol -PO tylenol On re-eval, patient states she is feeling better Patient educated on findings, discharged with rx Tamiflu (dose given in ED), albuterol HFA, promethazine with codeine, ibuprofen Advised fluids, rest Follow up PMD within 2-3 days Return precautions given Disposition - Clinical Impression Clinical Impression: Influenza - Patient ED Disposition Is Patient to be Admitted: No Counseled Patient/Family Regarding: Studies Performed, Diagnosis, Need For Followup, Rx Given - Disposition Disposition: Routine/Home Disposition Time: 02:00 Condition: IMPROVED Prescriptions: Albuterol HFA [Ventolin HFA 90 mcg/actuation (8 g)] 1 puff IH Q4 PRN #1 inh PRN Reason: Wheezing Ibuprofen [Motrin Tab] 1 tab PO Q6 PRN #20 tab PRN Reason: Fever >100.4 F Oseltamivir [Tamiflu] 75 mg PO BID #9 cap Promethazine HCl/Codeine [Promethazine-Codeine Syrup] 5 ml PO Q8 PRN #75 ml PRN Reason: Cough Instructions: Flu Forms: [employer] (Vietnamese)
[2018-01-18 00:06] LABS: SQUAMOUS EPITHIAL < 1 /hpf (0-5); URINE BILIRUBIN NEGATIVE (NEGATIVE); URINE BLOOD NEGATIVE (NEGATIVE); URINE CLARITY CLOUDY (Clear); URINE COLOR YELLOW (YELLOW); URINE GLUCOSE (UA) NEG (Normal); URINE LEUKOCYTE ESTERASE NEG Leu/uL (Negative); URINE PROTEIN NEGATIVE (NEGATIVE); URINE UROBILINOGEN 0.2-1.0 mg/dL (0.2-1.0)
[2018-01-18] MEDS ORDERED: Albuterol-Ipratrop 3 mg / 0.5 (3 ml) UD ONE (00:25)
[2018-01-18 00:53] LABS: BASO % 0.5 % (0.0-2.0); EOS % 0.5 % (0.0-4.0); HEMOGLOBIN 14.2 g/dL (12.0-16.0); LYMPH # 0.6 K/uL (1.0-4.3); LYMPH % 13.5 % (20.0-40.0); MEAN CELL VOLUME 91.2 fl (81.0-99.0); MEAN CORPUSCULAR HEMOGLOBIN 31.2 pg (27.0-31.0); MEAN CORPUSCULAR HGB CONC 34.2 g/dL (33.0-37.0); MEAN PLATELET VOLUME 7.3 fl (7.2-11.7); MONO # 0.7 K/uL (0.0-0.8); MONO % 15.1 % (0.0-10.0); NEUT # 3.2 K/uL (1.8-7.0); NEUT % 70.4 % (50.0-75.0); RBC 4.54 Mil/uL (3.80-5.20); RED CELL DISTRIBUTION WIDTH 12.7 % (11.5-14.5); WHITE BLOOD COUNT 4.6 K/uL (4.8-10.8)
[2018-01-18 01:31] LABS: ALB/GLOB RATIO 1.3 (1.0-2.1); ALBUMIN 4.1 g/dL (3.5-5.0); ALT/SGPT 37 U/L (9-52); AST/SGOT 37 U/L (14-36); BLOOD UREA NITROGEN 10 mg/dl (7-17); CALCIUM 8.9 mg/dL (8.4-10.2); GFR NON-AFRICAN AMERICAN > 60
[2018-01-18] MEDS ORDERED: Sodium Chloride 0.9% 1,000 ML IV STA (03:12)
[2018-01-18 05:01] VITALS: BP 104/58; PULSE 95; RESP 16; TEMP 98.3; O2SAT 98
--- NOTE | 2018-01-18 12:33 | RAD ---
Date of service: 01/17/2018 HISTORY: fever, cough COMPARISON: 08/28/2017 TECHNIQUE: Chest PA and lateral FINDINGS: LUNGS: No active pulmonary disease. PLEURA: No significant pleural effusion identified. No pneumothorax apparent. CARDIOVASCULAR: No aortic atherosclerotic calcification present. Normal cardiac size. No pulmonary vascular congestion. OSSEOUS STRUCTURES: No significant abnormalities. VISUALIZED UPPER ABDOMEN: Normal. OTHER FINDINGS: None. IMPRESSION: No active disease. No significant interval change compared to the prior examination(s).
== END 2018-01-18 04:55 | disposition home or self-care (01) ==
LOC: H.ER 22:15
DX: J11.1 Influenza due to unidentified influenza virus with other respiratory manifestations (principal); I10 Essential (primary) hypertension; R09.81 Nasal congestion
CPT/HCPCS: 71046; 80053; 81003; 81025; 83605; 84484; 85025; 87070; 87430; 87804; 94640; 96361; 96374; 99284; J1885; J7030